=== PATIENT | female | born 1935 | race Caucasian/White ===

== ENCOUNTER → 2017-06-19 | Outpatient (CLI) | payer MEDICARE, BC ==
--- NOTE | 2017-06-19 13:58 | XR ---
EXAMINATION TYPE: XR chest 2V DATE OF EXAM: 06/19/2017 COMPARISON: NONE HISTORY: Bronchitis per order. Cough and congestion per patient. TECHNIQUE: Frontal and lateral views of the chest are obtained. FINDINGS: There is calcified left lower lobe nodule or granuloma. There is no focal air space opacit y, pleural effusion, or pneumothorax seen. The cardiac silhouette size is within normal limits. Th e osseous structures are demineralized. Underlying levoconvex scoliosis centered in the mid lumbar sp ine is present. IMPRESSION: No suspicious acute pulmonary process.
== END | disposition home or self-care (01) ==
LOC: RADXRMAIN 13:36
PROVIDERS: ATTEND Family Medicine
DX: J20.8 Acute bronchitis due to other specified organisms (principal)
CPT/HCPCS: 71020

== ENCOUNTER → 2022-08-03 | Outpatient (CLI) | payer MEDICARE, BC ==
--- NOTE | 2022-08-06 10:47 | MM ---
Reason for Exam: Screening (asymptomatic). Last mammogram was performed 13 year(s) and 3 month(s) ago. Patient History: Menarche at age 12. First Full-Term at age 18. Postmenopausal. Breast cancer, left, age 53. 1990, Mastectomy on the Left side. Niece had breast cancer under age 50. Prior Study Comparison: 10/11/2004 Right Special View Mammogram, [facility]. 08/08/2006 Screening Mammogram, [facility]. 05/16/2009 Right Diagnostic Mammogram, [facility]. Tissue Density: Right: The breast tissue is heterogeneously dense. This may lower the sensitivity of mammography. Findings: Analyzed By CAD. Benign vascular calcifications within the right breast. No suspicious groups of microcalcifications, spiculated or lobular masses, architectural distortion or other secondary signs of malignancy are mammographically apparent. Overall Assessment: Benign, BI-RAD 2 Management: Screening Mammogram of the right breast in 1 year. A negative mammogram report should not preclude additional follow up of suspicious palpable abnormalities. Patient should continue monthly self breast exam. A clinical breast exam by your physician is recommended on an annual basis and results should be correlated with mammographic findings. Electronically signed and approved by: Jin Villar D.O. Radiologis
== END | disposition home or self-care (01) ==
LOC: RADMAMWWP 15:28
PROVIDERS: ATTEND Family Medicine
DX: Z12.31 Encounter for screening mammogram for malignant neoplasm of breast (principal); Z80.3 Family history of malignant neoplasm of breast; Z78.0 Asymptomatic menopausal state; Z98.82 Breast implant status
CPT/HCPCS: 77067

== ENCOUNTER → 2023-01-03 | Outpatient (CLI) | payer MEDICARE, BC ==
[2023-01-03 13:03] LABS: African American GFR (CKD) >90 (>60 ml/min/1.73 sqM); Blood Urea Nitrogen 22 mg/dL (7-17); Non-African American GFR(CKD) 84 (>60 ml/min/1.73 sqM)
--- NOTE | 2023-01-03 13:44 | CT ---
EXAMINATION TYPE: CT chest w con CT DLP: 174.3 mGycm, Automated exposure control for dose reduction was used. DATE OF EXAM: 01/03/2023 1:36 PM COMPARISON: Chest radiograph from 06/19/2017 CLINICAL INDICATION:Female, 87 years old with history of R91.1 SOLITARY PULMONARY NODULE; PHH, nodule s TECHNIQUE: Multiple axial images were obtained through the chest following the administration of 100 cc of Isovue 300. MIP was performed. Coronal and sagittal reformats reviewed. FINDINGS: LUNGS/ PLEURA: No pleural effusion, pneumothorax, focal consolidation. Left lower lobe 6 mm calcified granuloma. AIRWAY: Patent and unremarkable.. HEART: Size within normal limits. No pericardial effusion. Mild coronary arterial calcifications. MEDIASTINUM: No evidence of adenopathy. VASCULATURE: No aortic aneurysm. MUSCULOSKELETAL: Mild disc degeneration changes are present throughout the thoracolumbar spine. No ag gressive osseous lesion. No acute osseous adenopathy. Mild dextrocurvature of the thoracic spine. SOFT TISSUES/LYMPH NODES: Unremarkable. LOWER NECK: No significant findings. UPPER ABDOMEN: Small to moderate-sized hiatal hernia. IMPRESSION: 1. Left lower lobe 6 mm calcified granuloma. No concerning pulmonary nodules. 2. Small to moderate size hiatal hernia.
== END | disposition home or self-care (01) ==
LOC: RADCTMAIN 12:18
PROVIDERS: ATTEND Family Medicine
DX: K44.9 Diaphragmatic hernia without obstruction or gangrene (principal); L92.9 Granulomatous disorder of the skin and subcutaneous tissue, unspecified; R91.1 Solitary pulmonary nodule
CPT/HCPCS: 82565; 84520; 71260; 36415; Q9967

== ENCOUNTER → 2023-08-23 | Outpatient (CLI) | payer MEDICARE, BC ==
[2023-08-23 21:17] LABS: T4, Free (Free Thyroxine) 1.75 ng/dL (0.80-1.80)
== END | disposition home or self-care (01) ==
LOC: LABWHC1 12:10
PROVIDERS: ATTEND Family Medicine
DX: I10 Essential (primary) hypertension (principal); E03.9 Hypothyroidism, unspecified
CPT/HCPCS: 36415; 84439; 84443

== ENCOUNTER → 2023-08-28 | Outpatient (CLI) | payer MEDICARE, BC ==
--- NOTE | 2023-08-28 13:44 | XR ---
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 TECHNIQUE: XR Hip Complete LT; hip was examined in the frontal and lateral projections and a AP pelvi s. FINDINGS: Post arthroplasty changes, hardware is intact, alignment is appropriate. No evidence of fra cture. No evidence of any acute osseous pathology or joint dislocation. Mild degeneration changes of the sacroiliac joints and pubic symphysis with osteophyte formation. IMPRESSION: Hip arthroplasty with hardware intact and in appropriate alignment. No acute fracture.
== END | disposition home or self-care (01) ==
LOC: RADXRMAIN 12:15
PROVIDERS: ATTEND Family Medicine
DX: M16.12 Unilateral primary osteoarthritis, left hip (principal); Z96.642 Presence of left artificial hip joint
CPT/HCPCS: 73502